=== PATIENT | female | born 1960 ===

== ENCOUNTER 2023-09-20 14:28 | Outpatient (AMB) | payer MEDICAID, SELFPAY ==
--- NOTE | 2023-09-20 14:29 | HO.NEPHOV_ITS ---
HPI HPI Comments History of Present Illness Details 63-year-old woman with history of longst anding diabetes mellitus hypertension referred for chronic kidney disease. She has been on multiple medications including amlodipine spironolactone lisinopril. She has a history of proteinuria along with leg edema. Recent labs are not available. PFSH Family History (Updated 09/20/23 @ 14:33 by Katy Martinez) Mother Kidney failure Social History (Updated 09/20/23 @ 14:33 by Katy Martinez) Alcohol intake: former Patient Tobacco Use Status: Never used Tobacco Vital Signs 09/20/23 14:31 Weight 152 lb BP 160/98 H Blood Pressure Location Lt brachial Position Sitting Pulse 87 Pulse Source Pulse Oximeter Pulse Oximetry (%) 98 Oxygen Delivery Method Room Air Physical Exam Vital Signs: Last Vital Signs Pulse 87 09/20/23 14:31 BP 160/98 H 09/20/23 14:31 Pulse Ox 98 09/20/23 14:31 Oxygen Delivery Method Room Air 09/20/23 14:31 Const General: comfortable Nutritional Appearance: well nourished Orientation/consciousness: patient oriented x3 HEENT Head: No normal to inspection Mouth: moist mucous membranes Neck Neck: Yes supple and Yes no JVD Resp Auscultation: clear to auscultation bilaterally, no rales and rub present Cardio Jugular venous distension: no JVD Palpation: no palpable S3 and no palpable S4 Heart sounds: no rubs GI Palpation (GI): Soft to palpation and nontender Percussion: No Fluid wave present General: Yes no CVA tenderness Back/Spine/Pelvis Back: no CVA tenderness Skin General skin exam: no rashes or lesions noted Neuro General: patient oriented x3 Extrem General: No clubbing and Yes edema Assessment & Plan Assessment & Plan (1) CKD (chronic kidney disease): Code(s): N18.9 - Chronic kidney disease, unspecified Plan 63-year-old woman with a history of longstanding hypertension diabetes mellitus with chronic kidney disease. She probably has underlying diabetic hypertensive kidney disease. However nondiabetic causes need to be ruled out. I have initiated workup for chronic kidney disease including routine urine studies as well as basic serologies. In the meantime goal is to maintain blood pressure less than 130/80. Continue to maintain hemoglobin A1c less than 7%. Stay on low-sodium diet Once the baseline workup is completed she returned to office in the next few weeks. Orders: Orders Comprehensive Met. Panel Today N18.9 - Chronic kidney disease, unspecified Complete Blood Count Auto Diff Today N18.30 - Chronic kidney disease, stage 3 unspecified, N18.9 - Chronic kidney disease, unspecified Phosphorus Today N18.9 - Chronic kidney disease, unspecified Total Protein Urine Random Today N18.9 - Chronic kidney disease, unspecified US renal BI Today N18.9 - Chronic kidney disease, unspecified Parathyroid Hormone Intact Today N18.9 - Chronic kidney disease, unspecified UA and rflx microscopic Today N18.9 - Chronic kidney disease, unspecified Creatinine Urine Today N05.9 - Unspecified nephritic syndrome with unspecified morphologic changes, N18.9 - Chronic kidney disease, unspecified Vitamin D 25-OH (D2 and D3) Today N18.9 - Chronic kidney disease, unspecified Coding Level of Care Code New Pt Level 4 (39496) Diagnoses CKD (chronic kidney disease) N18.9 Results Reviewed Results Reviewed: Labs are pending Nephrology Results: No Data to Display
[2023-09-20 14:31] VITALS: BP 160/98; PULSE 87; O2SAT 98
== END 2023-09-20 14:50 | disposition home or self-care (01) ==
PROVIDERS: PCP Physician Assistant; Referring Provider Physician Assistant; Visit Provider Internal Medicine Hypertension Specialist
DX: N18.9 Chronic kidney disease, unspecified (principal)
CPT/HCPCS: 99204

== ENCOUNTER 2023-09-20 14:28 | Outpatient (REF) | payer MEDICAID, SELFPAY ==
[2023-09-20 15:21] LABS: MANUAL DIFF FLAG NO
[2023-09-20 16:46] LABS: Basophils Absolute Auto 0.1 X10*3/uL (0.0-0.2); Basophils Percent Auto 0.5 % (0-2); Eosinophils Absolute Auto 0.2 X10*3/uL (0.0-0.4); Eosinophils Percent Auto 1.8 % (0-4); Imm Gran Abs Auto 0.06 X10*3/uL (0.00-0.03); Imm Gran Pct Auto 0.6 % (0.0-0.4); Lymphocytes Absolute Auto 1.1 X10*3/uL (1.2-4.9); Lymphocytes Percent Auto 10.9 % (20-40); Mean Corpuscular HGB Conc 32.9 g/dl (31.0-35.0); Mean Corpuscular Hemoglobin 26.6 pg (27.0-33.0); Mean Corpuscular Volume 81.1 fL (80.0-98.0); Mean Platelet Volume 12.7 fL (9.4-12.3); Monocytes Absolute Auto 0.6 X10*3/uL (0.1-1.2); Monocytes Percent Auto 6.2 % (2-11); Neutrophils Absolute Auto 8.2 x10*3/uL (2.0-8.3); Platelet Count 161 X10*3/uL (160-400); Red Blood Count 2.59 X10*6/uL (4.20-5.50); Red Cell Distribution Width 17.2 % (11.0-16.0); White Blood Count 10.2 X10*3/uL (4.8-10.8)
[2023-09-20 17:02] LABS: Hemoglobin 6.9 g/dl (12.0-16.0)
[2023-09-20 17:25] LABS: Appearance Urine Clear; Color Urine Yellow; Glucose Urine UA 500 mg/dL (Negative); Leukocyte Esterase Urine Negative (Negative); Nitrite Urine Negative (Negative); Specific Gravity - Urine 1.015 (1.005-1.025); UMIC TRIGGER UA YES; Urine Blood Small (1+) (Negative); Urine Ketones Negative (Negative); Urine Protein >=1000 (4+) mg/dL (Neg-Trace)
[2023-09-20 17:40] LABS: Bacteria Urine 1+ (None Seen); Hyaline Casts Urine 0-2 /LPF (0-2)
[2023-09-20 18:35] LABS: Alanine Aminotransferase 9 U/L (0-31); Albumin Level 2.9 g/dL (3.5-5.0); Alkaline Phosphatase 72 U/L (39-117); Anion Gap 8 (12-20); Aspartate Amino Transferase 13 U/L (5-31); Bilirubin Total 0.3 mg/dL (0.0-1.0); Blood Urea Nitrogen 40 mg/dL (9-16); Calcium 8.8 mg/dL (8.4-10.2); Carbon Dioxide 26 mmol/L (22-29); Chloride 110 mmol/L (96-108); Estimated Glomerular Filt Rate 10; Glucose Random 234 mg/dL (60-115); Phosphorus 4.3 mg/dL (2.7-4.5); Potassium 4.1 mmol/L (3.3-5.1); Sodium 140 mmol/L (135-145); Total Protein 6.5 g/dL (6.5-8.0)
[2023-09-20 20:33] LABS: Total Protein Urine Random 636 mg/dL (<12)
[2023-09-21 05:32] LABS: Parathyroid Hormone Intact 221.6 pg/mL (8.7-77.1)
[2023-09-24 16:33] LABS: Vitamin D 25-OH, D2 <4 ng/mL; Vitamin D 25-OH, D3 14 ng/mL; Vitamin D 25-OH, Total 14 ng/mL (30-100)
== END 2023-09-20 14:29 | disposition home or self-care (01) ==
LOC: HO.LAB 14:28
PROVIDERS: PCP Physician Assistant; Referring Provider Physician Assistant; Visit Provider Internal Medicine Hypertension Specialist
DX: N18.30 Chronic kidney disease, stage 3 unspecified (principal); N05.9 Unspecified nephritic syndrome with unspecified morphologic changes
CPT/HCPCS: 36415; 80053; 81001; 82306; 82570; 83970; 84100; 84156; 85025; 99202

== ENCOUNTER 2023-09-22 13:29 | Emergency (ER) | payer MEDICAID, SELFPAY ==
[2023-09-22] VITALS (8 sets, daily range): BP systolic 177–252; BP diastolic 90–118; PULSE 80–92; RESP 15–18; TEMP 36.5–37.2; O2SAT 97–100; BMI 28.1
--- NOTE | ~2023-09-22 | CT_ITS ---
EXAMINATION: CT HEAD WITHOUT CONTRAST CLINICAL INFORMATION: Severe headache, hypertension. COMPARISON: None. TECHNIQUE: Contiguous axial imaging was performed from the skull base to vertex without intravenous administration of contrast. This CT examination was performed using dose optimization techniques as appropriate, variously including the following: *Automated exposure control *Adjustment of mA and/or kV according to patient size (this includes techniques or standardized protocols for targeted exams where dose is matched to indication/reason for exam; i.e. extremities or head) *Use of iterative reconstruction technique DLP: 755 mGy-cm FINDINGS: Asymmetric hypoattenuation in the left cerebellar hemisphere (2:11), is most likely artifactual. Age indeterminate small lacunar infarct versus prominent perivascular space adjacent to the right thalamus (2:26). There is no evidence of acute intracranial hemorrhage or edematous territorial infarction. A few foci of hypoattenuation in the periventricular and deep white matter are consistent with mild microangiopathy. Spicer-white matter differentiation is preserved. Proportional prominence of the ventricles and sulcal spaces. No evidence for obstructive hydrocephalus. No abnormal mass effect or midline shift. No extra-axial fluid collections. No acute soft tissue or osseous abnormalities. Mucosal thickening of the sphenoidal sinus. Opacification of a small left posterior ethmoid air cell. Other paranasal sinuses, mastoids and middle ear cavities are clear. CT/CT head/brain wo IV con IMPRESSION: 1. No evidence of acute intracranial hemorrhage or edematous territorial infarction. 2. Age indeterminate lacunar infarct versus prominent perivascular space adjacent to the right thalamus. Further characterization with MRI of the brain as clinically indicated. 3. Asymmetric hypoattenuation in the left cerebellar hemisphere is most likely artifactual. Further characterization with MRI of the brain as clinically indicated.
--- NOTE | 2023-09-22 13:40 | ED.GENADULT ---
HPI - General Adult General Chief complaint: General Medical Stated complaint: Sent by PCP - transfusion Time Seen by Provider: 09/22/23 13:46 Related Data Home Medications Medication Instructions Recorded Confirmed atenolol 100 mg tablet 100 mg PO DAILY 09/20/23 atorvastatin 80 mg tablet 80 mg PO DAILY 09/20/23 cyanocobalamin (vitamin B-12) 1,000 mcg IM 09/20/23 1,000 mcg/mL injection solution ferrous gluconate 324 mg (38 mg 324 mg PO QAM 09/20/23 iron) tablet gabapentin 100 mg capsule 100 mg PO TID PRN 09/20/23 hydralazine 50 mg tablet 50 mg PO ONCE 09/20/23 insulin glargine 100 unit/mL (3 30 unit subcut BEDTIME 09/20/23 mL) subcutaneous pen (Lantus Solostar U-100 Insulin) insulin lispro 100 unit/mL subcut TID 09/20/23 subcutaneous pen lisinopril 20 2 tab PO DAILY 09/20/23 mg-hydrochlorothiazide 25 mg tablet spironolactone 25 mg tablet 25 mg PO DAILY 09/20/23 Allergies Allergy/AdvReac Type Severity Reaction Status Date / Time acetaminophen [From Percocet] Allergy Mild Unknown Verified 09/22/23 13:39 morphine Allergy Mild Unknown Verified 09/22/23 13:39 oxycodone [From Percocet] Allergy Mild Unknown Verified 09/22/23 13:39 hydrocodone [From Vicodin] Allergy Unknown Verified 09/22/23 13:39 [facility] Family History Family History (Updated 09/20/23 @ 14:33 by Katy Martinez) Mother Kidney failure Social History Social History (Updated 09/20/23 @ 14:33 by Katy Martinez) Alcohol intake: former Patient Tobacco Use Status: Never used Tobacco Advance Directives: No Advance Directives Information Provided: Yes Physical Exam ED Vital Signs: Vital Signs - 24 hr 09/22/23 13:40 Temperature 98 F Pulse Rate 80 Respiratory Rate 16 Blood Pressure 177/90 H Pulse Oximetry 100 BMI result Body Mass Index 28.1 Course Course Course Narrative: This is an RME: Additional HPI, ROS, PE not included below will be deferred to primary provider. 63 yo f presents w/ low H&H out patient fatigue, and malaise X few days. Told to come in for a transfusion. No bleeidng reported or dark stool. Not on thinners. Plan- labs, type and screen Medical Decision Making Lab Data 09/22/23 14:43 09/22/23 14:43 Labs: Lab Results 09/22/23 Range/Units 14:43 WBC 10.1 (4.8-10.8) X10*3/uL RBC 2.40 L (4.20-5.50) X10*6/uL Hgb 6.4 L* (12.0-16.0) g/dl Hct 19.2 L* (37.0-47.0) % MCV 80.0 (80.0-98.0) fL MCH 26.7 L (27.0-33.0) pg MCHC 33.3 (31.0-35.0) g/dl RDW 17.2 H (11.0-16.0) % Plt Count 137 L (160-400) X10*3/uL MPV 11.1 (9.4-12.3) fL Immature Gran % (Auto) 0.7 H (0.0-0.4) % Neut % (Auto) 79.4 H (45-73) % Lymph % (Auto) 9.9 L (20-40) % [place] % (Auto) 7.7 (2-11) % Eos % (Auto) 2.0 (0-4) % Baso % (Auto) 0.3 (0-2) % Lymph # (Auto) 1.0 L (1.2-4.9) X10*3/uL [place] # (Auto) 0.8 (0.1-1.2) X10*3/uL Eos # (Auto) 0.2 (0.0-0.4) X10*3/uL Baso # (Auto) 0.0 (0.0-0.2) X10*3/uL Abs Immat Gran (auto) 0.07 H (0.00-0.03) X10*3/uL Absolute Neuts (auto) 8.0 (2.0-8.3) x10*3/uL Absolute Nucleated RBC 0.000 (0.0-0.012) X10*3/uL Nucleated RBC % (auto) 0.0 (0.0-0.2) /100WBC Crossmatch See Detail Discharge Plan Discharge Prescriptions: No Action gabapentin 100 mg capsule 100 mg PO TID PRN atenolol 100 mg tablet 100 mg PO DAILY atorvastatin 80 mg tablet 80 mg PO DAILY lisinopril-hydrochlorothiazide 20-25 mg tablet 2 tab PO DAILY cyanocobalamin (vitamin B-12) 1,000 mcg/mL solution 1,000 mcg IM ferrous gluconate 324 mg (38 mg iron) tablet 324 mg PO QAM spironolactone 25 mg tablet 25 mg PO DAILY insulin lispro 100 unit/mL insulin pen subcut TID hydralazine 50 mg tablet 50 mg PO ONCE insulin glargine [Lantus Solostar U-100 Insulin] 100 unit/mL (3 mL) insulin pen 30 unit subcut BEDTIME
--- NOTE | 2023-09-22 14:05 | ED_ITS ---
HPI - General Adult General Chief complaint: General Medical Stated complaint: Sent by PCP - transfusion Time Seen by Provider: 09/22/23 13:46 History of Present Illness HPI narrative: The patient is a 63-year-old woman who comes to the emergency room after being called by lab because of abnormal values on outpatient phlebotomy done 2 days ago on September 19. The labs showed significant anemia and renal dysfunction. She receives her primary care through the [facility] in [place]. She sees the physician urgent care physician assistant Jayce Ray. The patient says that she was hospitalized 2 months ago at [facility]. She says that was the first hospitalization she has had in a long, long time. She says at that visit she was found to be anemic and received blood transfusions. She says that she signed out of the hospital prior to completion of care because it was her birthday and she wanted to attend her birthday libertarian ( date is July 22). Subsequent to that visit had a first-time nephrology visit through [facility] with Dr. Buster Tafoya 2 days ago on September 19. Outpatient labs were ordered at that time. These labs showed a hemoglobin of 6.9 with a hematocrit of 21.0. Platelet count of 161. Labs also showed a creatinine of 4.37 with a BUN of 40. Because of her significant anemia and her poor renal function she was advised to come to the hospital. Her drove her to the hospital today. The patient has not been significantly symptomatic in any way. She has had no fever his pain or shortness of breath. No abdominal pain. Has had bilateral leg edema however. The patient denies any bloody stools. The patient denies any black stools. The patient denies any dysuria, urgency, or frequency. The patient has been on a number of medications for her blood pressure. I believe that prior to her hospitalization in July she was on amlodipine, lisinopril, and hydrochlorothiazide. I believe that when she was discharged from [facility] the lisinopril was stopped and she was prescribed hydralazine. However since leaving [facility] she saw her PCP the [facility] who told her to restart the lisinopril/hydrochlorothiazide. She was never represcribed hydralazine. She has apparently been prescribed atenolol but she has not been taking it. She says she has not currently taking amlodipine either. I believe at some point she was also prescribed spironolactone but she does not think she is taking it. She thinks the only blood pressure medications she has been taking his her combination lisinopril/hydrochlorothiazide. Related Data Home Medications Medication Instructions Recorded Confirmed atenolol 100 mg tablet 100 mg PO DAILY 09/20/23 atorvastatin 80 mg tablet 80 mg PO DAILY 09/20/23 cyanocobalamin (vitamin B-12) 1,000 mcg IM 09/20/23 1,000 mcg/mL injection solution ferrous gluconate 324 mg (38 mg 324 mg PO QAM 09/20/23 iron) tablet gabapentin 100 mg capsule 100 mg PO TID PRN 09/20/23 hydralazine 50 mg tablet 50 mg PO ONCE 09/20/23 insulin glargine 100 unit/mL (3 30 unit subcut BEDTIME 09/20/23 mL) subcutaneous pen (Lantus Solostar U-100 Insulin) insulin lispro 100 unit/mL subcut TID 09/20/23 subcutaneous pen lisinopril 20 2 tab PO DAILY 09/20/23 mg-hydrochlorothiazide 25 mg tablet spironolactone 25 mg tablet 25 mg PO DAILY 09/20/23 Previous Rx's Medication Instructions Recorded amlodipine 10 mg tablet 10 mg PO DAILY #30 tabs 09/22/23 cephalexin 500 mg capsule 500 mg PO BID 5 days #10 caps 09/22/23 hydralazine 50 mg tablet 50 mg PO TID #90 tabs 09/22/23 Allergies Allergy/AdvReac Type Severity Reaction Status Date / Time acetaminophen [From Percocet] Allergy Mild Unknown Verified 09/22/23 13:39 morphine Allergy Mild Unknown Verified 09/22/23 13:39 oxycodone [From Percocet] Allergy Mild Unknown Verified 09/22/23 13:39 hydrocodone [From Vicodin] Allergy Unknown Verified 09/22/23 13:39 Review of Systems 2 Review of Systems: Yes all other systems are reviewed and are negative [facility] Past Medical History Medical History (Updated 09/22/23 @ 18:14 by Varsha Lara RN) Kidney stones HTN (hypertension) Diabetes Anemia Family History Family History (Updated 09/20/23 @ 14:33 by Katy Martinez) Mother Kidney failure Social History Social History (Updated 09/20/23 @ 14:33 by Katy Martinez) Alcohol intake: former Patient Tobacco Use Status: Never used Tobacco Physical Exam ED Vital Signs: Vital Signs - 24 hr 09/22/23 13:40 09/22/23 16:00 09/22/23 18:06 Temperature 98 F 97.9 F 97.7 F Pulse Rate 80 87 92 Respiratory Rate 16 16 18 Blood Pressure 177/90 H 252/118 H 235/105 H Pulse Oximetry 100 99 Oxygen Delivery Method Room Air BMI result Body Mass Index 28.1 Const Other: The patient is awake and alert. She does not appear in obvious distress. She is pleasant and cooperative HENDC Other: Symmetrical. Mucous membranes moist Eyes Other: Pupils are round equal, conjunctivae clear Neck Other: No JVD, no cervical adenopathy Resp Effort & Inspection: normal respiratory effort Auscultation: clear to auscultation bilaterally Cardio Rate: regular rate Rhythm: regular rhythm Heart sounds: S1 normal heart sound present and S2 normal heart sound present GI Other: Abdomen is soft and nontender Skin Other: The skin is dry and unremarkable Neuro Other: The patient is awake and alert. She seems reasonably well oriented. Speech is clear. Face is symmetrical. She moves her extremities symmetrically. She is grossly neurologically intact. Extrem Other: One to 2+ edema of both lower legs Medications Administered Discontinued Medications Generic Name Dose Route Start Last Admin Trade Name Freq PRN Reason Stop Dose Admin Hydralazine HCl 50 mg 09/22/23 17:00 09/22/23 17:30 Hydralazine Hcl 50 Mg Tablet PO 09/22/23 17:01 50 mg ONCE ONE Administration Protocol Medical Decision Making Medical Decision Making [facility] Narrative: The patient is a 63-year-old woman who came to the hospital after having outpatient lab work 2 days ago ordered by her printed forms proofreader. This showed she was significantly this a high creatinine. My expectation had been to admit the patient for blood transfusion and further management of her kidney disease and blood pressure medications. Her blood pressure medications have been varying a great deal recently because of different advice from different providers. I was surprised when the patient told me that she did not wish to be hospitalized because she has airline ticket to fly to [place] tomorrow. I have told her that I think she has serious health problems that should probably supercede her plans to go to [place] but the patient initially at least is not amenable to changing her travel plans. The patient signed a consent for blood transfusion. At this point the patient is just starting her blood transfusion. Her blood pressures have become numb. The patient attributes this to the anxiety is because she had multiple attempts at phlebotomy and IV starts frustrated that she is told that she should be hospitalized. I reviewed all of her recent blood pressure medications. She has been on, or at least prescribed, a variety a blood pressure medications recently including hydralazine, amlodipine, atenolol, lisinopril/hydrochlorothiazide, and spironolactone. However according to the patient and her it seems as though the only antihypertensive medication she has actually been taking recently is the lisinopril/hydrochlorothiazide. The patient's urinalysis today shows moderate leukocyte esterase and greater than 50 white cells. The patient denies any sense of dysuria, urgency, or frequency or any other sense of having UTI. Nevertheless I think that based on the appearance of the UA I would err on the side of treating her with antibiotics. I have ordered cephalexin. At the end of my shift I have had a long discussion with the patient and her about coming into the hospital. The is contacting the airline to see if the tickets can be canceled or changed in some way. The blood transfusion is just beginning at the time I am at the end of my shift. I have written up discharge instructions on the assumption that the patient continues to refuse hospitalization. I think she would need to sign out against medical advice given the numerous problems she has. However if she does sign out against medical advice and is discharged from the emergency room I have written prescriptions for hydralazine 50 mg t.i.d. and 10 mg daily. I have also written a prescription for cephalexin 500 mg b.i.d. x5 days. Lab Data 09/22/23 14:43 09/22/23 14:43 Labs: Lab Results 09/22/23 09/22/23 Range/Units 14:43 17:01 WBC 10.1 (4.8-10.8) X10*3/uL RBC 2.40 L (4.20-5.50) X10*6/uL Hgb 6.4 L* (12.0-16.0) g/dl Hct 19.2 L* (37.0-47.0) % MCV 80.0 (80.0-98.0) fL MCH 26.7 L (27.0-33.0) pg MCHC 33.3 (31.0-35.0) g/dl RDW 17.2 H (11.0-16.0) % Plt Count 137 L (160-400) X10*3/uL MPV 11.1 (9.4-12.3) fL Immature Gran % (Auto) 0.7 H (0.0-0.4) % Neut % (Auto) 79.4 H (45-73) % Lymph % (Auto) 9.9 L (20-40) % [place] % (Auto) 7.7 (2-11) % Eos % (Auto) 2.0 (0-4) % Baso % (Auto) 0.3 (0-2) % Lymph # (Auto) 1.0 L (1.2-4.9) X10*3/uL [place] # (Auto) 0.8 (0.1-1.2) X10*3/uL Eos # (Auto) 0.2 (0.0-0.4) X10*3/uL Baso # (Auto) 0.0 (0.0-0.2) X10*3/uL Abs Immat Gran (auto) 0.07 H (0.00-0.03) X10*3/uL Absolute Neuts (auto) 8.0 (2.0-8.3) x10*3/uL Absolute Nucleated RBC 0.000 (0.0-0.012) X10*3/uL Nucleated RBC % (auto) 0.0 (0.0-0.2) /100WBC Sodium 142 (135-145) mmol/L Potassium 3.9 (3.3-5.1) mmol/L Chloride 109 H (96-108) mmol/L Carbon Dioxide 24 (22-29) mmol/L Anion Gap 13 (12-20) BUN 43 H (9-16) mg/dL Creatinine 4.58 H* (0.5-1.4) mg/dL Estim Creat Clear Calc 11.7 Estimated GFR 10 Random Glucose 230 H (60-115) mg/dL Calcium 8.5 (8.4-10.2) mg/dL Magnesium 2.0 (1.6-2.6) mg/dL Total Bilirubin 0.2 (0.0-1.0) mg/dL AST 12 (5-31) U/L ALT 7 (0-31) U/L Alkaline Phosphatase 67 (39-117) U/L Total Protein 6.0 L (6.5-8.0) g/dL Albumin 2.7 L (3.5-5.0) g/dL Urine Color Yellow Urine Appearance Cloudy Urine pH 7.0 (5.0-9.0) Ur Specific L[place]ers 1.015 (1.005-1.025) Urine Protein >=1000 (4+) H (Neg-Trace) mg/dL Urine Glucose (UA) 500 H (Negative) mg/dL Urine Ketones Negative (Negative) mg/dL Urine Blood Small (1+) H (Negative) Urine Nitrite Negative (Negative) Ur Leukocyte Esterase Moderate (2+) H (Negative) Urine RBC 3-5 H (0-2) /HPF Urine WBC >50 H (0-5) /HPF Ur Squamous Epith Cells 0-2 (0-2) /HPF Urine Bacteria 1+ (None Seen) Hyaline Casts 0-2 (0-2) /LPF Blood Type O Positive Antibody Screen NEGATIVE Crossmatch See Detail Independent Interpretation I performed an independent interpretation of an: EKG Interpretation: EKG at 14:45 shows normal sinus rhythm at 89 beats per minute. No ischemic changes. No other concerning findings. Discharge Plan Discharge Clinical Impression: Anemia, CKD (chronic kidney disease), Hypertension, Abnormal urinalysis Patient Disposition: Still a Patient Additional Instructions: Your blood counts were low today and so you were given a blood transfusion of a unit of blood cells. Additionally your kidney function is not good and your blood pressure has been quite high. You were advised to be hospitalized today for additional care. You have decided against hospitalization despite the recommendation for hospitalization. With regard to blood pressure medications going forward our recommendation is the following: A prescription for hydralazine 50 mg 3 times a day and amlodipine 10 mg daily has been sent to your pharmacy. Stop taking the lisinopril/hydrochlorothiazide and any other blood pressure medications you have been prescribed. Please return to the emergency room at any time. If you feel worse when you are in [place] please go to the nearest hospital Prescriptions: New hydralazine 50 mg tablet 50 mg PO TID Qty: 90 0RF amlodipine 10 mg tablet 10 mg PO DAILY Qty: 30 0RF cephalexin 500 mg capsule 500 mg PO BID 5 Days Qty: 10 0RF No Action gabapentin 100 mg capsule 100 mg PO TID PRN atenolol 100 mg tablet 100 mg PO DAILY atorvastatin 80 mg tablet 80 mg PO DAILY lisinopril-hydrochlorothiazide 20-25 mg tablet 2 tab PO DAILY cyanocobalamin (vitamin B-12) 1,000 mcg/mL solution 1,000 mcg IM ferrous gluconate 324 mg (38 mg iron) tablet 324 mg PO QAM spironolactone 25 mg tablet 25 mg PO DAILY insulin lispro 100 unit/mL insulin pen subcut TID hydralazine 50 mg tablet 50 mg PO ONCE insulin glargine [Lantus Solostar U-100 Insulin] 100 unit/mL (3 mL) insulin pen 30 unit subcut BEDTIME Referrals: Buster Tafoya MD [Physician] - (anemia, chronic kidney disease, hypertension)
--- NOTE | 2023-09-22 14:11 | ECG_ITS ---
Test Reason : FATIGUE Blood Pressure : / mmHG Vent. Rate : 089 BPM Atrial Rate : 089 BPM P-R Int : 162 ms QRS Dur : 070 ms QT Int : 376 ms P-R-T Axes : 053 008 010 degrees QTc Int : 457 ms Normal sinus rhythm Normal ECG No previous ECGs available Referred By: Morris Roberts Electronically Signed By:ELIZABETH POWELL MD
--- NOTE | 2023-09-22 14:43 | PC.NURSE ---
labs drawn by tech
[2023-09-22 14:48] LABS: MANUAL DIFF FLAG NO
[2023-09-22 14:58] LABS: Basophils Percent Auto 0.3 % (0-2); Eosinophils Absolute Auto 0.2 X10*3/uL (0.0-0.4); Imm Gran Abs Auto 0.07 X10*3/uL (0.00-0.03); Imm Gran Pct Auto 0.7 % (0.0-0.4); Lymphocytes Percent Auto 9.9 % (20-40); Mean Corpuscular HGB Conc 33.3 g/dl (31.0-35.0); Mean Corpuscular Hemoglobin 26.7 pg (27.0-33.0); Mean Platelet Volume 11.1 fL (9.4-12.3); Monocytes Absolute Auto 0.8 X10*3/uL (0.1-1.2); Monocytes Percent Auto 7.7 % (2-11); Neutrophils Percent Auto 79.4 % (45-73); Platelet Count 137 X10*3/uL (160-400); Red Cell Distribution Width 17.2 % (11.0-16.0); White Blood Count 10.1 X10*3/uL (4.8-10.8)
[2023-09-22 15:00] LABS: Hematocrit 19.2 % (37.0-47.0); Hemoglobin 6.4 g/dl (12.0-16.0)
[2023-09-22 15:38] LABS: Alanine Aminotransferase 7 U/L (0-31); Albumin Level 2.7 g/dL (3.5-5.0); Alkaline Phosphatase 67 U/L (39-117); Anion Gap 13 (12-20); Aspartate Amino Transferase 12 U/L (5-31); Bilirubin Total 0.2 mg/dL (0.0-1.0); Blood Urea Nitrogen 43 mg/dL (9-16); Calcium 8.5 mg/dL (8.4-10.2); Carbon Dioxide 24 mmol/L (22-29); Chloride 109 mmol/L (96-108); Creatinine Clr Calc Pharmacy 11.7; Estimated Glomerular Filt Rate 10; Glucose Random 230 mg/dL (60-115); Potassium 3.9 mmol/L (3.3-5.1); Sodium 142 mmol/L (135-145)
--- NOTE | 2023-09-22 17:01 | PC.NURSE ---
pt ambulated to bathroom, urine obtained
[2023-09-22 17:17] LABS: Appearance Urine Cloudy; Color Urine Yellow; Glucose Urine UA 500 mg/dL (Negative); Leukocyte Esterase Urine Moderate (2+) (Negative); Nitrite Urine Negative (Negative); Specific Gravity - Urine 1.015 (1.005-1.025); UMIC TRIGGER UACC YES; Urine Blood Small (1+) (Negative); Urine Ketones Negative (Negative); Urine Protein >=1000 (4+) mg/dL (Neg-Trace)
[2023-09-22 17:29] LABS: Bacteria Urine 1+ (None Seen); Hyaline Casts Urine 0-2 /LPF (0-2); Squamous Epithelial Cell Urine 0-2 /HPF (0-2); UACC Culture Trigger YES; WBC Urine >50 /HPF (0-5)
[2023-09-22] MEDS: hydrALAZINE HCl 50 MG TABLET PO (17:30)
[2023-09-22] MEDS: cephALEXin 500 MG CAPSULE PO (18:34)
[2023-09-22] MEDS: amLODIPine Besylate 10 MG TABLET PO (18:34)
--- NOTE | 2023-09-22 18:37 | PC.NURSE ---
patient a&ox3, pt at bedside, cardiac cath technologist nsr, pt continues to be hypertensive, pt medicated per order, blood running per order-pt tolerating well, call ruff within reach, will continue to monitor
[2023-09-22] MEDS: hydrALAZINE HCl 20 MG/ML VIAL 5 MG IVPUSH (22:08)
[2023-09-23 05:50] VITALS: BP 189/89; PULSE 92; RESP 17; TEMP 36.7; O2SAT 97
[2023-09-23 06:56] VITALS: BP 202/83; PULSE 87; RESP 17; TEMP 36.8; O2SAT 97
[2023-09-23] MEDS: atenoloL 100 MG TABLET PO (06:57)
[2023-09-23] MEDS: hydrALAZINE HCl 50 MG TABLET PO (06:57)
[2023-09-23 07:06] VITALS: BP 202/83; PULSE 87; RESP 17; TEMP 36.8; O2SAT 97
== END 2023-09-23 07:07 | disposition left against medical advice (07) ==
PROVIDERS: Physician Assistant; Emergency Provider Emergency Medicine; PCP Physician Assistant
DX: D64.9 Anemia, unspecified (principal); I12.9 Hypertensive chronic kidney disease with stage 1 through stage 4 chronic kidney disease, or unspecified chronic kidney disease; E11.22 Type 2 diabetes mellitus with diabetic chronic kidney disease; N18.9 Chronic kidney disease, unspecified; R60.0 Localized edema; R51.9 Headache, unspecified; R53.83 Other fatigue; Z79.899 Other long term (current) drug therapy; Z79.4 Long term (current) use of insulin
CPT/HCPCS: 36415; 36430; 70450; 80053; 81001; 83735; 85025; 86850; 86900; 86901; 86920; 87086; 87088; 87186; 93005; 96374; 99285; J0360; P9016

== ENCOUNTER → 2023-09-22 14:11 | Outpatient (BNV) | payer MEDICAID, SELFPAY | PROVIDERS: Emergency Provider Emergency Medicine; PCP Physician Assistant; Visit Provider Internal Medicine Cardiovascular Disease | DX: R53.83 Other fatigue (principal) | CPT/HCPCS: 93010 ==

== ENCOUNTER 2023-10-19 10:23 | Outpatient (AMB) | payer MEDICAID, SELFPAY ==
[2023-10-19 10:25] VITALS: BP 230/98; PULSE 66; O2SAT 94; BMI 29.4
--- NOTE | 2023-10-19 10:25 | HO.NEPHOV_ITS ---
HPI HPI Comments History of Present Illness Details 63-year-old woman with history of longst anding diabetes mellitus hypertension referred for chronic kidney disease. She has been on multiple medications including amlodipine spironolactone lisinopril. She has a history of proteinuria along with leg edema. 10/19/2023. Following her previous visit she was found to have severe anemia. She was sent to the emergency room for blood transfusion. She recently visited [place] and she is she has returned of recently. She continues her shortness of breath on exertion has leg edema. Based on recent lab work she she will be requiring renal replacement therapy. However she does not want dialysis at this time. Her daughter was with her today. [facility] Medical History (Updated 10/06/23 @ 05:31 by Abiodun Neal) Kidney stones HTN (hypertension) Diabetes Anemia Family History Mother Kidney failure Social History Alcohol intake: former Patient Tobacco Use Status: Never used Tobacco Vital Signs 10/19/23 10:25 Height 5 ft 2 in Weight 161 lb BMI 29.4 BP 230/98 H Blood Pressure Location Lt brachial Position Sitting Pulse 66 Pulse Source Pulse Oximeter Pulse Oximetry (%) 94 Oxygen Delivery Method Room Air Physical Exam Vital Signs: Last Vital Signs Pulse 66 10/19/23 10:25 BP 230/98 H 10/19/23 10:25 Pulse Ox 94 10/19/23 10:25 Oxygen Delivery Method Room Air 10/19/23 10:25 BMI result Body Mass Index 29.4 Const General: comfortable Nutritional Appearance: well nourished Orientation/consciousness: patient oriented x3 HEENT Head: No normal to inspection Mouth: moist mucous membranes Neck Neck: Yes supple and Yes no JVD Resp Auscultation: clear to auscultation bilaterally, no rales and rub present Cardio Jugular venous distension: no JVD Palpation: no palpable S3 and no palpable S4 Heart sounds: no rubs GI Palpation (GI): Soft to palpation and nontender Percussion: No Fluid wave present General: Yes no CVA tenderness Back/Spine/Pelvis Back: no CVA tenderness Skin General skin exam: no rashes or lesions noted Neuro General: patient oriented x3 Extrem General: No clubbing and Yes edema Assessment & Plan Assessment & Plan (1) CKD (chronic kidney disease): Code(s): N18.9 - Chronic kidney disease, unspecified Plan 63-year-old woman with a history of longstanding hypertension diabetes mellitus with chronic kidney disease. She probably has underlying diabetic hypertensive kidney disease. nondiabetic causes seem unlikely. Recent EGFR is less than 10 mL/minute. She is significant fluid overload. She would require renal replacement therapy. I had a lengthy discussion with her. Roselyn does not want dialysis at this time. Blood pressure is suboptimal. I will keep her on the current medications and add Bumex 2 mg a day. The addition of diuretic should augment the antihypertensive effect of other agents Continue to maintain hemoglobin A1c less than 7%. Stay on low-sodium diet Anemia We will recheck hemoglobin today if hematocrit is low she would require transfusion. I will check iron stores and start her on erythropoietin replacement therapy. Secondary hyperparathyroidism I have added calcitriol 0.25 mcg and we will watch PTH and calcium levels Orders: Orders Basic Metabolic Panel Today N18.9 - Chronic kidney disease, unspecified Complete Blood Count no Diff Today N18.9 - Chronic kidney disease, unspecified IRON PROFILE Today N18.5 - Chronic kidney disease, stage 5, N18.9 - Chronic kidney disease, unspecified Medications: New bumetanide 2 mg PO DAILY 30 tabs 0RF calcitriol 0.25 mcg PO DAILY 30 caps 0RF Coding Level of Care Code Est Pt Level 4 (47632) Diagnoses CKD (chronic kidney disease) N18.9 Results Reviewed Nephrology Results: Hgb 6.4 g/dl (12.0-16.0) L* 09/22/23 WBC 10.1 X10*3/uL (4.8-10.8) 09/22/23 Plt Count 137 X10*3/uL (160-400) L 09/22/23 Sodium 142 mmol/L (135-145) 09/22/23 Potassium 3.9 mmol/L (3.3-5.1) 09/22/23 Chloride 109 mmol/L (96-108) H 09/22/23 Carbon Dioxide 24 mmol/L (22-29) 09/22/23 BUN 43 mg/dL (9-16) H 09/22/23 Creatinine 4.58 mg/dL (0.5-1.4) H* 09/22/23 Calcium 8.5 mg/dL (8.4-10.2) 09/22/23 Phosphorus 4.3 mg/dL (2.7-4.5) 09/20/23 PTH Intact 221.6 pg/mL (8.7-77.1) H 09/20/23 Urine Protein >=1000 (4+) mg/dL (Neg-Trace) H 4 Urine Creatinine 50.80 mg/dL 09/20/23
== END 2023-10-19 11:10 | disposition home or self-care (01) ==
PROVIDERS: PCP Physician Assistant; Referring Provider Physician Assistant; Visit Provider Internal Medicine Hypertension Specialist
DX: N18.9 Chronic kidney disease, unspecified (principal)
CPT/HCPCS: 99214

== ENCOUNTER → 2023-10-19 10:23 | Outpatient (BNVA) | payer MEDICAID, SELFPAY | PROVIDERS: PCP Physician Assistant; Visit Provider Internal Medicine Hypertension Specialist ==

== ENCOUNTER 2023-10-19 11:00 | Outpatient (REF) | payer MEDICAID, SELFPAY ==
[2023-10-19 17:13] LABS: Hematocrit 25.4 % (37.0-47.0); Hemoglobin 8.1 g/dl (12.0-16.0); Mean Corpuscular HGB Conc 31.9 g/dl (31.0-35.0); Mean Corpuscular Hemoglobin 26.7 pg (27.0-33.0); Mean Corpuscular Volume 83.8 fL (80.0-98.0); Platelet Count 151 X10*3/uL (160-400); Red Blood Count 3.03 X10*6/uL (4.20-5.50); Red Cell Distribution Width 16.4 % (11.0-16.0); White Blood Count 10.5 X10*3/uL (4.8-10.8)
[2023-10-19 17:46] LABS: Anion Gap 10 (12-20); Blood Urea Nitrogen 38 mg/dL (9-16); Calcium 8.4 mg/dL (8.4-10.2); Carbon Dioxide 22 mmol/L (22-29); Chloride 115 mmol/L (96-108); Glucose Random 139 mg/dL (60-115); Iron 48 mcg/dL (30-160); Percent Iron Saturation 22 % (15-50); Sodium 142 mmol/L (135-145); Total Iron Binding Capacity 216 mcg/dL (228-428); Unsaturated Iron Binding 168 ug/dL
[2023-10-19 17:55] LABS: Estimated Glomerular Filt Rate 9
== END 2023-10-19 11:01 | disposition home or self-care (01) ==
LOC: HO.HKASLDS 11:00
PROVIDERS: Visit Provider Internal Medicine Hypertension Specialist
DX: N18.5 Chronic kidney disease, stage 5 (principal)
CPT/HCPCS: 36415; 80048; 83540; 85027; 99212